=== PATIENT | female | born 1935 | race Two or more races ===

== ENCOUNTER 2019-07-03 10:05 | Inpatient (IN) | payer SELFPAY ==
[~2019-07-03] VITALS: Ht 165.1 cm; Wt 47.6 kg
[2019-07-03] MEDS ORDERED: MORPHINE SULFATE 4 MG/ML CPJ (NOT FOR IM USE) IV STA (10:47)
[2019-07-03] MEDS ORDERED: ONDANSETRON HCL 4MG/2ML INJ IV STA (10:47)
[2019-07-03 10:58] LABS: HEMATOCRIT. 38.1 % (36.0-48.0); HEMOGLOBIN. 12.6 g/dL (12.0-16.0); MEAN CORPUSCULAR HEMOGLOBIN 29.4 pg (28.0-32.0); MEAN CORPUSCULAR VOLUME 88.6 fL (81.0-99.0); MEAN PLATELET VOLUME 8.5 fl (7.4-10.4); PLATELET 240 x1000/uL (130-400); RED BLOOD CELL COUNT 4.31 mill/uL (4.2-5.4); RED CELL DISTRIBUTION WIDTH 14.6 % (11.6-14.6)
[2019-07-03] MEDS ORDERED: FAMOTIDINE 20MG/2ML VIAL IV ONE (11:00)
[2019-07-03 11:06] LABS: CHLORIDE 110 mEq/L (98-107)
[2019-07-03 11:23] LABS: PROTHROMBIN TIME 11.3 sec (9.6-11.0)
[2019-07-03] MEDS ORDERED: PIPERACILLIN/TAZ 3.375G PREMIX 50 ML IV ONE (11:30)
[2019-07-03] MEDS ORDERED: PIPERACILLIN/TAZ 3.375G PREMIX 50 ML IV SCH ×2 (11:30→20:00)
[2019-07-03 11:33] LABS: PLATELET ESTIMATE NORMAL
[2019-07-03 13:07] LABS: CLARITY URINE CLOUDY (CLEAR); COLOR URINE DARK YELLOW (YELLOW); KETONES URINE TRACE (NEGATIVE); LEUKOCYTE ESTERASE URINE NEGATIVE (NEGATIVE); NITRITE URINE NEGATIVE (NEGATIVE); OCCULT BLOOD URINE NEGATIVE (NEGATIVE); PROTEIN URINE 2+ (NEGATIVE); SPECIFIC GRAVITY URINE 1.033 (1.005-1.030)
[2019-07-03] MEDS: DEXT 5%/LACTATED RINGERS 1,000 ML IV SCH (13:19)
[2019-07-03] MEDS ORDERED: ACETAMINOPHEN 650MG SUPP PR PRN (13:30)
[2019-07-03] MEDS ORDERED: HYDRALAZINE 20MG/ML VIAL IV PRN (13:30)
[2019-07-03] MEDS ORDERED: ONDANSETRON HCL 4MG/2ML INJ IV PRN (13:30)
[2019-07-03] MEDS ORDERED: LORAZEPAM 2MG/ML CPJ IV PRN (13:30)
[2019-07-03] MEDS ORDERED: NITROGLYCERIN 0.4MG TABLET SL SL PRN (13:30)
[2019-07-03] MEDS ORDERED: DIPHENHYDRAMINE 50MG/ML VIAL IV PRN (13:30)
[2019-07-03] MEDS ORDERED: IPRATROPIUM/ALBUTEROL 0.5-3(2.5)MG/3ML NEB NEB PRN (13:30)
[2019-07-03] MEDS: PIPERACILLIN/TAZ 3.375G PREMIX 50 ML IV SCH ×3 (14:30→22:35)
[2019-07-03] MEDS: ENOXAPARIN 30MG/0.3ML SYR SUBCUT SCH (15:00)
[2019-07-03 15:33] LABS: CREATINE KINASE 78 IU/L (26-192)
[2019-07-03 15:34] LABS: CREATINE KINASE MB FRACTION 1.7 ng/mL (0.5-3.6)
[2019-07-03] MEDS: KETOROLAC 15MG/ML VIAL IV PRN (18:50)
[2019-07-03 23:16] LABS: CREATINE KINASE 58 IU/L (26-192)
[2019-07-03 23:17] LABS: CREATINE KINASE MB FRACTION 1.4 ng/mL (0.5-3.6)
[2019-07-04] MEDS: DEXT 5%/LACTATED RINGERS 1,000 ML IV SCH ×2 (02:39→15:16)
[2019-07-04] MEDS ORDERED: PIPERACILLIN/TAZOBACTAM 3.375 G in DEXT 5% WATER 100 ML IV SCH (04:00)
[2019-07-04] MEDS ORDERED: PIPERACILLIN/TAZ 3.375G PREMIX 50 ML IV NR (05:00)
[2019-07-04] MEDS: PANTOPRAZOLE SODIUM 40 MG/VIAL IV SCH (10:25)
[2019-07-04 14:13] VITALS: BP 158/89
[2019-07-04 15:00] VITALS: BP 158/62
[2019-07-04] MEDS: ENOXAPARIN 30MG/0.3ML SYR SUBCUT SCH (15:14)
[2019-07-04 16:00] VITALS: BP 166/76
[2019-07-04] MEDS: PIPERACILLIN/TAZOBACTAM 3.375 G in DEXT 5% WATER 100 ML IV SCH (16:52)
[2019-07-04 16:55] VITALS: BP 155/80
[2019-07-04] MEDS ORDERED: ASPI-1028 PO (18:14)
[2019-07-04 20:00] VITALS: BP 141/63
[2019-07-05] VITALS (7 sets, daily range): BP systolic 118–159; BP diastolic 60–123
[2019-07-05] MEDS: PIPERACILLIN/TAZOBACTAM 3.375 G in DEXT 5% WATER 100 ML IV SCH ×4 (00:15→23:43)
[2019-07-05 07:11] LABS: BASOPHILS % 0.9 % (0.0-2.0); EOSINOPHILS % 2.8 % (0.0-5.0); HEMATOCRIT. 35.9 % (36.0-48.0); LYMPHOCYTES % 18.4 % (20.0-50.0); MEAN CORPUSCULAR HEMOGLOBIN 29.5 pg (28.0-32.0); MEAN PLATELET VOLUME 8.6 fl (7.4-10.4); MONOCYTES % 7.9 % (2.0-8.0); PLATELET 214 x1000/uL (130-400); RED BLOOD CELL COUNT 4.08 mill/uL (4.2-5.4); RED CELL DISTRIBUTION WIDTH 14.6 % (11.6-14.6)
[2019-07-05 07:39] LABS: HEPATITIS B SURFACE ANTIGEN NEGATIVE
[2019-07-05 08:09] LABS: HEPATITIS A AB IGM NEGATIVE (NEGATIVE)
[2019-07-05] MEDS: PANTOPRAZOLE SODIUM 40 MG/VIAL IV SCH (08:26)
[2019-07-05] MEDS: KETOROLAC 15MG/ML VIAL IV PRN (10:21)
[2019-07-05 10:28] LABS: CHLORIDE 108 mEq/L (98-107)
[2019-07-05 10:34] LABS: PHOSPHORUS 2.7 mg/dL (2.5-4.9)
[2019-07-05] MEDS: DEXT 5%/LACTATED RINGERS 1,000 ML IV SCH ×2 (12:09→18:39)
[2019-07-05] MEDS ORDERED: DIATR MEGLU/DIATRIZOATE SOLN 120ML ONE (15:09)
[2019-07-05] MEDS: ENOXAPARIN 30MG/0.3ML SYR SUBCUT SCH (17:01)
[2019-07-06] VITALS: BP 123/64
[2019-07-06 04:00] VITALS: BP 118/67
[2019-07-06 08:00] VITALS: BP 116/73
[2019-07-06] MEDS: DEXT 5%/LACTATED RINGERS 1,000 ML IV SCH ×2 (09:54→21:02)
[2019-07-06] MEDS: PIPERACILLIN/TAZOBACTAM 3.375 G in DEXT 5% WATER 100 ML IV SCH ×2 (09:55→17:53)
[2019-07-06] MEDS: PANTOPRAZOLE SODIUM 40 MG/VIAL IV SCH (09:55)
[2019-07-06 12:00] VITALS: BP 103/64
[2019-07-06 16:00] VITALS: BP 110/56
[2019-07-06 17:09] LABS: ANTI-NUCLEAR ANTIBODIES DIRECT Negative (Negative)
[2019-07-06] MEDS: ENOXAPARIN 30MG/0.3ML SYR SUBCUT SCH (17:51)
[2019-07-06 20:00] VITALS: BP 106/68
[2019-07-07] VITALS: BP 113/65
[2019-07-07] MEDS: PIPERACILLIN/TAZOBACTAM 3.375 G in DEXT 5% WATER 100 ML IV SCH ×2 (00:38→08:21)
[2019-07-07 04:00] VITALS: BP 111/78
[2019-07-07] MEDS: PANTOPRAZOLE SODIUM 40 MG/VIAL IV SCH (08:20)
[2019-07-07 08:30] VITALS: BP 117/64
[2019-07-07] MEDS ORDERED: DILTIAZEM HCL 120MG CAPSULE CD 24HR PO SCH (09:45)
[2019-07-07] MEDS: DEXT 5%/LACTATED RINGERS 1,000 ML IV SCH (10:09)
[2019-07-07 10:33] VITALS: BP 117/64
[2019-07-07 12:00] VITALS: BP 112/65
[2019-07-07 13:06] LABS: ACTIN (SMOOTH MUSCLE) ANTIBODY 147 Units (0-19); MITOCHONDRIAL M2 AB 26.8 Units (0.0-20.0)
== END 2019-07-07 12:24 | disposition home or self-care (01) | DRG 252 ==
LOC: ER 10:30 → EDBD 10:30 → EDBEDREQ 12:56 → ENRESERV 07-04 12:23 → 7WST 07-04 12:54
PROVIDERS: ADMIT Internal Medicine; ATTEND Internal Medicine
PROC: 0D9670Z Drainage of Stomach with Drainage Device, Via Natural or Artificial Opening (ICD-10-PCS; principal; 2019-07-05)
DX: K91.89 Other postprocedural complications and disorders of digestive system (principal); G92 Toxic encephalopathy; I48.91 Unspecified atrial fibrillation; K80.30 Calculus of bile duct with cholangitis, unspecified, without obstruction; K56.7 Ileus, unspecified; K83.8 Other specified diseases of biliary tract; R07.89 Other chest pain; Y83.8 Other surgical procedures as the cause of abnormal reaction of the patient, or of later complication, without mention of misadventure at the time of the procedure; R79.89 Other specified abnormal findings of blood chemistry; Z90.49 Acquired absence of other specified parts of digestive tract; Z79.82 Long term (current) use of aspirin; Y92.89 Other specified places as the place of occurrence of the external cause
CPT/HCPCS: 36415; 71045; 74018; 74176; 74250; 76705; 80053; 80076; 81003; 82550; 82553; 83036; 83516; 83605; 83735; 83880; 84100; 84484; 85025; 86038; 86705; 86709; 86803; 87340; 93005; 93970; 97116; 97162; 97166; 99291; C9113; J1650; J1885; J2270; J2405; J2543; J3490; J7060; Q9963